=== PATIENT | female | born 1970 | race Caucasian/White ===

== ENCOUNTER 2016-12-18 20:11 | Emergency (ER) | payer BC ==
[2016-12-18] MEDS ORDERED: Ondansetron INJ* 2 MG/ML VIAL IV ONE (20:22)
[2016-12-18] MEDS ORDERED: Morphine INJ* 2 MG/ML 1 ML SYRINGE IV ONE (20:22)
[2016-12-18] MEDS ORDERED: NS 0.9% 1000 ML* 1,000 ML IV ONE (20:23)
--- NOTE | 2016-12-18 21:09 | UC ---
Complaint Female HPI - HPI Summary HPI Summary: PATIENT ARRIVES IN SEVERE PAIN AND DISTRESS. 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 SEVERE SWELLING, BLEEDING, AND AND PAIN TO AREA FOLLOWING INJURY - History Of Current Complaint Stated Complaint: PERSONAL Time Seen by Provider: 12/18/16 20:22 Hx Obtained From: Patient, Family/Concrete Boom Operator Onset/Duration: Sudden Onset, Lasting Minutes, Still Present Timing: Constant Severity Initially: Moderate Severity Currently: Severe Pain Intensity: 5 Pain Scale Used: 0-10 Numeric Character: Sharp, Dull Aggravating Factor(s): Movement, Urination Associated Signs And Symptoms: Positive: Vaginal Bleeding/Discharge, Genital Swelling. Negative: Fever, Back Pain - Risk Factors Ectopic Risk Factor: Negative - Allergies/Home Medications Allergies/Adverse Reactions: Allergies Allergy/AdvReac Type Severity Reaction Status Date / Time No Known Allergies Allergy Verified 04/23/16 12:15 PMH/Surg Hx/FS Hx/Imm Hx Previously Healthy: Yes - Family History Known Family History: Negative: Blood Disorder - Social History Occupation: Employed Full-time Lives: With Family Review of Systems Constitutional: Negative Skin: Other - SWELLING OF EXTERNAL GENITALIA R>L Eyes: Negative ENT: Negative Respiratory: Negative Cardiovascular: Negative Gastrointestinal: Negative Genitourinary: Negative Motor: Negative Neurovascular: Negative Musculoskeletal: Negative Neurological: Negative Psychological: Negative All Other Systems Reviewed And Are Negative: Yes Physical Exam Triage Information Reviewed: Yes Appearance: Well-Nourished, Pain Distress, Thin Vital Signs: Initial Vital Signs Resp 18 12/18/16 20:29 Vital Signs Reviewed: Yes Eye Exam: Normal ENT Exam: Normal Dental Exam: Normal Neck exam: Normal Neck: Positive: Supple, Nontender, No Lymphadenopathy Respiratory Exam: Normal Respiratory: Positive: Chest non-tender, Lungs clear, Normal breath sounds, No respiratory distress, No accessory muscle use Cardiovascular Exam: Normal Cardiovascular: Positive: RRR, No Murmur, Pulses Normal Abdominal Exam: Normal Abdomen Description: Positive: Nontender Musculoskeletal Exam: Normal Musculoskeletal: Positive: Strength Intact Neurological Exam: Normal Psychological Exam: Normal Psychological: Positive: Normal Response To Family Skin: Positive: Other - SWELLING POSSIBLE LACERATION OF EXTERNAL GENITALIA Complaint Female Dx - Differential Dx/Diagnosis Differential Diagnosis/HQI/PQRI: Other - INJURY TO PUBIC SYMPHYSIS, VAGINAL GENITAL TRAUMA. Provider Diagnoses: VAGINAL/GENITAL TRAUMA - Physician Notifications Discussed Patient Care With: Issac Ignacio Time Discussed With Above Provider: 20:10 Instructed by Provider To: MD Will See In ED Discharge - Discharge Plan Condition: Stable Disposition: TRANS HIGHER LVL OF CARE FAC Referrals: Brett Echavarria MD [Primary Care Provider] -
[2016-12-18 21:47] VITALS: BP 157/96
== END 2016-12-18 20:40 | disposition short-term general hospital (02) ==
LOC: UCEAST 20:11
DX: S39.848A Other specified injuries of external genitals, initial encounter (principal); W18.09XA Striking against other object with subsequent fall, initial encounter; Y93.9 Activity, unspecified; Y92.9 Unspecified place or not applicable; Y99.9 Unspecified external cause status
CPT/HCPCS: 96374; 96375; 96376; 99203; 99213; G0463; J2270; J2405

== ENCOUNTER 2016-12-18 20:59 | Observation (INO) | payer BC ==
[2016-12-18] MEDS ORDERED: Ondansetron INJ* 2 MG/ML VIAL IV ONE (21:28)
[2016-12-18] MEDS ORDERED: HYDROmorphone* 1 MG/ML 1 ML SYR IV SLOW PU ONE ×2 (21:28→22:41)
[2016-12-18 21:44] LABS: Hematocrit 35 % (35-47); Hemoglobin 11.5 g/dl (12.0-16.0); Mean Corpuscular HGB Conc 33 g/dl (31-36); Mean Corpuscular Hemoglobin 28 pg (27-31); Mean Corpuscular Volume 86 fL (80-97); Mean Platelet Volume 8 um3 (7.4-10.4); Red Blood Count 4.08 10^6/ul (4.0-5.4); Red Cell Distribution Width 13 % (10.5-15); White Blood Count 16.8 10^3/ul (3.5-10.8)
[2016-12-18 21:50] LABS: Comments Flag Yes
[2016-12-18 21:56] LABS: Add Diff/Slide Review? Slide Review Added
[2016-12-18 22:01] LABS: ALT 16 U/L (7-52); AST 15 U/L (13-39); Albumin 4.4 g/dL (3.2-5.2); Alkaline Phosphatase 60 U/L (34-104); Anion Gap 7 mmol/L (2-11); BUN/Creatinine Ratio 18.3 (8-20); Blood Urea Nitrogen 13 mg/dL (6-24); CO2 Carbon Dioxide 26 mmol/L (22-32); Calcium 9.6 mg/dL (8.6-10.3); Chloride 101 mmol/L (101-111); EGFR African American 114.5 (>60); Globulin 3.2 g/dL (2-4); Glucose 101 mg/dL (70-100); Potassium 4.5 mmol/L (3.5-5.0); Sodium 134 mmol/L (133-145); Total Protein 7.6 g/dL (6.4-8.9)
--- NOTE | 2016-12-18 22:10 | RAD ---
INDICATION: Fall. Pelvic injury. COMPARISON: None TECHNIQUE: Noncontrast axial source images were obtained from the iliac crests through the symphysis pubis. FINDINGS: There are no CT abnormalities of the bony pelvis. The uterus and adnexa appear normal on noncontrast imaging. There is a large right labial hematoma measuring approximately 7.3 x 4.1 cm. There is a small amount of edema in the subadjacent fat of the perineum. There are no additional soft tissue abnormalities. No free fluid or adenopathy is seen. The noncontrast CT appearance of the bowel is unremarkable. The superficial soft tissues appear normal. The bladder appears normal. IMPRESSION: RIGHT LABIAL HEMATOMA.
--- NOTE | 2016-12-18 22:40 | ED ---
GI/ HPI - HPI Summary HPI Summary: 46F PMH of depression and PTSD presents with right labia trauma s/p slipped on deck and a board hit her external genitalia. She is in severe pain and the area is bleeding. She denies any LOC, chest pain, abdominal pain, or lower extremity pain. She was transferred from urgent care due to bleeding and extreme pain. She has been placing ice on the area. She was able to ambulate into urgent care with extreme pain. She has not urinated yet. A almazan was attempted to be inserted and was unsuccessful at urgent care. - History of Current Complaint Chief Complaint: EDTraumaMultiple Time Seen by Provider: 12/18/16 21:20 Stated Complaint: INJURY TO GENITALIA - Allergy/Home Medications Allergies/Adverse Reactions: Allergies Allergy/AdvReac Type Severity Reaction Status Date / Time Bupropion [From Wellbutrin] Allergy Rash Verified 12/18/16 21:47 PMH/Surg Hx/FS Hx/Imm Hx Endocrine/Hematology History: Denies: Hx Anticoagulant Therapy Cardiovascular History: Denies: Hx Hypertension Psychiatric History: Reports: Hx Post Traumatic Stress Disorder - Cancer History Hx Chemotherapy: No Hx Radiation Therapy: No - Surgical History Surgery Procedure, Year, and Place: , TONSILLECTOMY, BUNIONECTOMY Infectious Disease History: Denies: Traveled Outside the [place] in Last 30 Days - Family History Known Family History: Positive: Cardiac Disease - Social History Alcohol Use: None Substance Use Type: Reports: None Smoking Status (MU): Never Smoked Tobacco Review of Systems Negative: Fever Negative: Chest Pain Negative: Shortness Of Breath Positive: Other - labia trama All Other Systems Reviewed And Are Negative: Yes Physical Exam Triage Information Reviewed: Yes Vital Signs On Initial Exam: Initial Vitals Resp 18 12/18/16 21:56 Vital Signs Reviewed: Yes Appearance: Positive: Pain Distress Skin: Positive: Warm, Dry Head/Face: Positive: Normal Head/Face Inspection Eyes: Positive: Normal, Conjunctiva Clear Respiratory/Lung Sounds: Positive: Clear to Auscultation, Breath Sounds Present Cardiovascular: Positive: Normal, RRR Abdomen Description: Positive: Nontender, Soft Bowel Sounds: Positive: Present Pelvic Exam: Positive: other - large edematous right labia with ecchmyosis present with two lacerations present on labia major one is 3cm other is 4cm that are not bleeding at this time and appear superficial, no blood visible on external exam of vagina, on bimanual exam small amount of blood present in vagina unable to see source and due to patient discomfort unable to insert speculum Diagnostics - Vital Signs Vital Signs Resp 12/18/16 21:56 18 - Laboratory Lab Results: Lab Results 12/18/16 12/18/16 12/18/16 Range/Units 20:28 20:28 20:28 WBC 16.8 H (3.5-10.8) 10^3/ul RBC 4.08 (4.0-5.4) 10^6/ul Hgb 11.5 L (12.0-16.0) g/dl Hct 35 (35-47) % MCV 86 (80-97) fL MCH 28 (27-31) pg MCHC 33 (31-36) g/dl RDW 13 (10.5-15) % Plt Count 390 (150-450) 10^3/ul MPV 8 (7.4-10.4) um3 Neut % (Auto) 65.2 (38-83) % Lymph % (Auto) 21.6 L (25-47) % [place] % (Auto) 10.8 H (1-9) % Eos % (Auto) 1.7 (0-6) % Baso % (Auto) 0.7 (0-2) % Absolute Neuts (auto) 11.0 H (1.5-7.7) 10^3/ul Absolute Lymphs (auto) 3.6 (1.0-4.8) 10^3/ul Absolute Monos (auto) 1.8 H (0-0.8) 10^3/ul Absolute Eos (auto) 0.3 (0-0.6) 10^3/ul Absolute Basos (auto) 0.1 (0-0.2) 10^3/ul Absolute Nucleated RBC 0.01 10^3/ul Nucleated RBC % 0 INR (Anticoag Therapy) 0.95 (0.89-1.11) Sodium 134 (133-145) mmol/L Potassium 4.5 (3.5-5.0) mmol/L Chloride 101 (101-111) mmol/L Carbon Dioxide 26 (22-32) mmol/L Anion Gap 7 (2-11) mmol/L BUN 13 (6-24) mg/dL Creatinine 0.71 (0.51-0.95) mg/dL Est GFR ( Amer) 114.5 (>60) Est GFR (Non-Af Amer) 89.0 (>60) BUN/Creatinine Ratio 18.3 (8-20) Glucose 101 H (70-100) mg/dL Calcium 9.6 (8.6-10.3) mg/dL Total Bilirubin 0.30 (0.2-1.0) mg/dL AST 15 (13-39) U/L ALT 16 (7-52) U/L Alkaline Phosphatase 60 (34-104) U/L Total Protein 7.6 (6.4-8.9) g/dL Albumin 4.4 (3.2-5.2) g/dL Globulin 3.2 (2-4) g/dL Albumin/Globulin Ratio 1.4 (1-3) Beta HCG, Quant < 0.60 mIU/mL Result Diagrams: 12/18/16 20:28 12/18/16 20:28 Lab Statement: Any lab studies that have been ordered have been reviewed, and results considered in the medical decision making process. - CT pelvis CT Interpretation: Positive (See Comments) - IMPRESSION: RIGHT LABIAL HEMATOMA CT Interpretation Completed By: Radiologist DEVIN Course/Dx - Course Course Of Treatment: 46F presents with labial trauma today s/p she slipped and a loose board hit her labia. She states the area immediately swelled up and started to bleed. She went to urgent care prior to coming here and was given morphine 4mg. she is in severe pain distress on initial exam. gave dilaudid and pain was better enough so that was able to perform external exam. noted two supericial laceration to large edematous right labia that are not bleeding at time. spoke with dr kim as patient has seen here before and said to have dr gerardo admit for pain control and have whomever is on in the morning suture her as hematoma is not getting bigger and there is just oozing from the lacerations at this point. dr rios agrees to admit for pain control. patient understands and agrees with plan. - Diagnoses Differential Diagnoses - Female: Other - vaginal trauma, hematoma, laceration Provider Diagnoses: right labial hematoma, Laceration of labia majora Discharge - Discharge Plan Condition: Stable Disposition: ADMITTED TO [facility]
[2016-12-18] MEDS ORDERED: Ketorolac INJ* 30 MG/ML 1 ML VIAL IV PUSH ONE (23:18)
[2016-12-19] MEDS ORDERED: Naloxone* 0.4 MG/ML 1 ML VIAL IV PUSH PRN (01:59)
[2016-12-19] MEDS ORDERED: Morphine PCA* 150 MG in PREMIX PCA SCH (02:00)
[2016-12-19] MEDS ORDERED: NS 0.9% 1000 ML* 1,000 ML IV SCH (02:00)
[2016-12-19 08:01] VITALS: BP 105/54
[2016-12-19] MEDS ORDERED: oxyCODONE/Acetamin 5/325 MG* TAB PO PRN (08:03)
[2016-12-19] MEDS ORDERED: Docusate CAP* 100 MG PO PRN (08:09)
[2016-12-19] MEDS ORDERED: LevoCETirizine TAB (NF) 5 MG TAB PO SCH (09:00)
[2016-12-19] MEDS ORDERED: Sertraline* 100 MG TAB PO SCH (09:30)
[2016-12-19 11:03] LABS: Urine Bacteria Absent (Absent); Urine Bilirubin Negative (Negative); Urine Glucose Negative (Negative); Urine Nitrite Negative (Negative)
== END 2016-12-19 15:00 | disposition home or self-care (01) ==
LOC: ED 20:59 → MED 23:40
PROVIDERS: ADMIT Hospitalist; ATTEND Obstetrics & Gynecology
DX: S30.23XA Contusion of vagina and vulva, initial encounter (principal); S31.41XA Laceration without foreign body of vagina and vulva, initial encounter; W01.10XA Fall on same level from slipping, tripping and stumbling with subsequent striking against unspecified object, initial encounter; Y92.9 Unspecified place or not applicable; Z79.899 Other long term (current) drug therapy; F43.10 Post-traumatic stress disorder, unspecified; G43.909 Migraine, unspecified, not intractable, without status migrainosus; G47.00 Insomnia, unspecified; Z32.02 Encounter for pregnancy test, result negative
CPT/HCPCS: 36415; 72192; 80053; 81003; 81015; 84702; 85025; 85610; 86850; 86900; 86901; 96361; 96374; 96375; 99284; A9270-GY; G0378; J1170; J1885; J2405

== ENCOUNTER 2016-12-23 13:14 | Emergency (ER) | payer BC ==
[2016-12-23 14:17] VITALS: BP 112/70
[2016-12-23] MEDS ORDERED: Phenazopyridine TAB* 100 MG PO ONE (14:22)
--- NOTE | 2016-12-23 14:41 | UC ---
Complaint Female HPI - HPI Summary HPI Summary: TRAUMATIC LABIAL HEMATOMA ON 12/18/16 SEEN HERE AND AT EMERGENCY DEPARTMENT. HAD BEEN CATHED IN ED, HOSPITALIZED OVER NIGHT, WAS ABLE TO FREELY URINATE AFTER HOSPITAL OBSERVATION. CURRENTLY HAVING URINARY FREQUENCY, URGENCY AND DISCOMFORT WITH URINATION. NO FEVER NO BACK PAIN. NO ABDOMINAL PAIN. - History Of Current Complaint Chief Complaint: UCGU Stated Complaint: UTI COMPLAINT Time Seen by Provider: 12/23/16 13:42 Hx Obtained From: Patient Hx Last Menstrual Period: 12/15/16 Onset/Duration: Gradual Onset, Lasting Days Timing: Intermittent, Lasting Days, Lasting Weeks Severity Initially: Mild Severity Currently: Moderate Pain Intensity: 4 Pain Scale Used: 0-10 Numeric Character: Dull Aggravating Factor(s): Movement, Urination Associated Signs And Symptoms: Negative: Fever, Back Pain, Nausea, Vomiting(# Of Episodes =) - Risk Factors Ectopic Risk Factor: Negative Ovarian Torsion Risk Factor: Negative - Allergies/Home Medications Allergies/Adverse Reactions: Allergies Allergy/AdvReac Type Severity Reaction Status Date / Time Bupropion [From Wellbutrin] Allergy Rash Verified 12/23/16 14:08 PMH/Surg Hx/FS Hx/Imm Hx Previously Healthy: Yes Other History Of: Negative For: Anticoagulant Therapy - Surgical History Surgical History: Yes Surgery Procedure, Year, and Place: , TONSILLECTOMY, BUNIONECTOMY - Family History Known Family History: Positive: Cardiac Disease Negative: Blood Disorder - Social History Occupation: Employed Full-time Lives: With Family Alcohol Use: None Substance Use Type: None Smoking Status (MU): Never Smoked Tobacco Review of Systems Constitutional: Negative Skin: Negative Eyes: Negative ENT: Negative Respiratory: Negative Cardiovascular: Negative Gastrointestinal: Negative Genitourinary: Dysuria, Frequency, Urgency Motor: Negative Neurovascular: Negative Musculoskeletal: Negative Neurological: Negative Psychological: Negative All Other Systems Reviewed And Are Negative: Yes Physical Exam Triage Information Reviewed: Yes Appearance: Well-Appearing, Well-Nourished, Pain Distress Vital Signs: Initial Vital Signs Temp 98.3 F 12/23/16 14:10 Pulse 67 12/23/16 14:10 Resp 16 12/23/16 14:10 Pulse Ox 96 12/23/16 14:10 Vital Signs Reviewed: Yes Eye Exam: Normal ENT Exam: Normal ENT: Positive: Normal ENT inspection, Hearing grossly normal, TMs normal Dental Exam: Normal Neck exam: Normal Neck: Positive: Supple, Nontender, No Lymphadenopathy Respiratory Exam: Normal Respiratory: Positive: Chest non-tender, Lungs clear, Normal breath sounds, No respiratory distress Cardiovascular Exam: Normal Cardiovascular: Positive: RRR, No Murmur, Pulses Normal Abdominal Exam: Normal Abdomen Description: Positive: Nontender, No Organomegaly, Soft. Negative: CVA Tenderness (R), CVA Tenderness (L) Musculoskeletal Exam: Normal Neurological Exam: Normal Psychological Exam: Normal Skin Exam: Normal Complaint Female Dx - Differential Dx/Diagnosis Differential Diagnosis/HQI/PQRI: Urinary Tract Infection Provider Diagnoses: LABIAL HEMATOMA; URINARY TRACT INFECTION Discharge - Discharge Plan Condition: Stable Disposition: HOME Prescriptions: Phenazopyridine TAB* [Pyridium 100 mg TAB*] 100 mg PO TID #15 tab Sulfamethox/Trimethoprim DS* [Bactrim DS 800/160 TAB*] 1 tab PO BID #10 tab Patient Education Materials: Urinary Tract Infection in Women (ED) Referrals: Judi Alicea MD [Medical Doctor] - If Needed Brett Echavarria MD [Primary Care Provider] -
== END 2016-12-23 14:27 | disposition home or self-care (01) ==
LOC: UCEAST 13:14
DX: S30.23XA Contusion of vagina and vulva, initial encounter (principal); Y84.6 Urinary catheterization as the cause of abnormal reaction of the patient, or of later complication, without mention of misadventure at the time of the procedure; Y92.238 Other place in hospital as the place of occurrence of the external cause; Y93.9 Activity, unspecified; Y99.9 Unspecified external cause status; N39.0 Urinary tract infection, site not specified
CPT/HCPCS: 81003; 87077; 87086; 87186; 99212; A9270-GY; G0463

== ENCOUNTER 2017-03-12 10:26 | Inpatient (IN) | payer BC ==
[2017-03-12 11:18] LABS: Urine Bilirubin Negative (Negative); Urine Glucose Negative (Negative); Urine Nitrite Negative (Negative)
[2017-03-12 11:18] LABS: Hematocrit 35 % (35-47); Hemoglobin 11.8 g/dl (12.0-16.0); Mean Corpuscular HGB Conc 33 g/dl (31-36); Mean Corpuscular Hemoglobin 29 pg (27-31); Mean Corpuscular Volume 86 fL (80-97); Mean Platelet Volume 7 um3 (7.4-10.4); Red Blood Count 4.11 10^6/ul (4.0-5.4); Red Cell Distribution Width 13 % (10.5-15); White Blood Count 8.2 10^3/ul (3.5-10.8)
[2017-03-12 11:32] LABS: Benzodiazepine Urine Screen None Detected (None Detect)
[2017-03-12 11:35] LABS: ALT 16 U/L (7-52); AST 17 U/L (13-39); Albumin 4.3 g/dL (3.2-5.2); Alkaline Phosphatase 52 U/L (34-104); Anion Gap 10 mmol/L (2-11); BUN/Creatinine Ratio 15.5 (8-20); Blood Urea Nitrogen 11 mg/dL (6-24); CO2 Carbon Dioxide 26 mmol/L (22-32); Calcium 9.6 mg/dL (8.6-10.3); Chloride 102 mmol/L (101-111); EGFR Non-African American 88.6 (>60); Glucose 96 mg/dL (70-100); Potassium 4.2 mmol/L (3.5-5.0); Sodium 138 mmol/L (133-145); Total Protein 7.3 g/dL (6.4-8.9)
[2017-03-12 11:56] LABS: Acetaminophen < 15 mcg/mL; Alcohol < 10 mg/dL (<10); Salicylate < 2.50 mg/dL (<30)
[2017-03-12 12:03] LABS: TSH (Thyroid Stimulating Horm) 4.16 mcIU/mL (0.34-5.60)
--- NOTE | 2017-03-12 14:53 | ED ---
Gerardo Lizarraga Nilda, scribed for Cain Chopra MD on 03/12/17 at 1108 . Psychiatric Complaint - HPI Summary HPI Summary: Pt is a 47 y/o F presenting to ED with depression and "feels like she's falling apart." Symptoms are aggravated by work and alleviated by nothing. She notes insomnia. Yesterday she had suicidal ideation without a plan. She denies self- harm and auditory hallucinations. Patient also denies chest pain, SOB, abdominal pain, calf pain, and LE pain. She is a non-smoker and does not drink alcohol or abuse drugs. She was previously hospitalized for post- depression. She has no change to appetite. - History Of Current Complaint Chief Complaint: EDMentalHealth Time Seen by Provider: 03/12/17 10:55 Hx Obtained From: Patient Hx Last Menstrual Period: 12/15/16 Onset/Duration: Gradual Onset, Still Present Timing: Constant Character: Depressed Aggravating Factor(s): Recent Stress - Work Alleviating Factor(s): Nothing Associated Signs And Symptoms: Positive: Sleep Disturbance - Insomnia Has Suicidal: Reports: Thoughts - Allergies/Home Medications Allergies/Adverse Reactions: Allergies Allergy/AdvReac Type Severity Reaction Status Date / Time Bupropion [From Wellbutrin] Allergy Rash Verified 12/23/16 14:08 PMH/Surg Hx/FS Hx/Imm Hx Endocrine/Hematology History: Denies: Hx Anticoagulant Therapy Cardiovascular History: Denies: Hx Hypertension Sensory History: Reports: Hx Contacts or Glasses Denies: Hx Hearing Aid Opthamlomology History: Reports: Hx Contacts or Glasses Psychiatric History: Reports: Hx Depression - Depression, Hx Post Traumatic Stress Disorder - Cancer History Hx Chemotherapy: No Hx Radiation Therapy: No - Surgical History Surgery Procedure, Year, and Place: , TONSILLECTOMY, BUNIONECTOMY Infectious Disease History: Denies: Traveled Outside the [place] in Last 30 Days - Family History Known Family History: Positive: Cardiac Disease Negative: Blood Disorder - Social History Alcohol Use: None Substance Use Type: Reports: None Smoking Status (MU): Never Smoked Tobacco Review of Systems Negative: Chest Pain Negative: Shortness Of Breath Negative: Abdominal Pain Negative: Myalgia Positive: Depressed - suicidal ideation yesterday, Other - Negative: self-harm and auditory hallucinations All Other Systems Reviewed And Are Negative: Yes Physical Exam - Summary Physical Exam Summary: The patient is well nourished, and exhibits distress. She is crying and upset. The skin is warm and dry and skin color reflects adequate perfusion. HEENT: The head is normocephalic and atraumatic. The pupils are equal and reactive. The conjunctivae are clear and without drainage. Nares are patent and without drainage. Mouth reveals moist mucous membranes and the throat is without erythema and exudate. Neck is supple with full range of motion and non-tender. Respiratory: Chest is non-tender. Lungs are clear to auscultation and breath sounds are symmetrical and equal. Cardiovascular: Hear is regular rate and rhythm. There is no murmur or rub auscultated. There is no peripheral edema and pulses are symmetrical and equal. Abdomen: The abdomen is soft and non-tender. There are normal bowel sounds heard in all four quadrants and there is no organomegaly palpated. Musculoskeletal: There is no back pain noted. Extremities are non-tender with full range of motion. There is good capillary refill. There is no peripheral edema or calf tenderness elicited. Neurological: Patient is alert and oriented to person, place and time. She is cooperative. The patient has symmetrical motor strength in all four extremities. Cranial nerves are grossly intact. Deep tendon reflexes are symmetrical and equal in all four extremities. Psychiatric: The patient is crying, upset, and depressed. Triage Information Reviewed: Yes Vital Signs On Initial Exam: Initial Vitals Temp Pulse Resp BP Pulse Ox 9836 F 80 16 121/87 89 03/12/17 10:30 03/12/17 10:30 03/12/17 10:30 03/12/17 10:30 03/12/17 10:30 Vital Signs Reviewed: Yes Diagnostics - Vital Signs Vital Signs Temp Pulse Resp BP Pulse Ox 03/12/17 10:30 9836 F 80 16 121/87 89 - Laboratory Lab Results: Lab Results 03/12/17 03/12/17 03/12/17 Range/Units 10:48 11:06 11:06 WBC 8.2 (3.5-10.8) 10^3/ul RBC 4.11 (4.0-5.4) 10^6/ul Hgb 11.8 L (12.0-16.0) g/dl Hct 35 (35-47) % MCV 86 (80-97) fL MCH 29 (27-31) pg MCHC 33 (31-36) g/dl RDW 13 (10.5-15) % Plt Count 373 (150-450) 10^3/ul MPV 7 L (7.4-10.4) um3 Neut % (Auto) 57.8 (38-83) % Lymph % (Auto) 28.8 (25-47) % [place] % (Auto) 9.6 H (1-9) % Eos % (Auto) 2.5 (0-6) % Baso % (Auto) 1.3 (0-2) % Absolute Neuts (auto) 4.8 (1.5-7.7) 10^3/ul Absolute Lymphs (auto) 2.4 (1.0-4.8) 10^3/ul Absolute Monos (auto) 0.8 (0-0.8) 10^3/ul Absolute Eos (auto) 0.2 (0-0.6) 10^3/ul Absolute Basos (auto) 0.1 (0-0.2) 10^3/ul Absolute Nucleated RBC 0 10^3/ul Nucleated RBC % 0 Sodium 138 (133-145) mmol/L Potassium 4.2 (3.5-5.0) mmol/L Chloride 102 (101-111) mmol/L Carbon Dioxide 26 (22-32) mmol/L Anion Gap 10 (2-11) mmol/L BUN 11 (6-24) mg/dL Creatinine 0.71 (0.51-0.95) mg/dL Est GFR ( Amer) 114.0 (>60) Est GFR (Non-Af Amer) 88.6 (>60) BUN/Creatinine Ratio 15.5 (8-20) Glucose 96 (70-100) mg/dL Calcium 9.6 (8.6-10.3) mg/dL Total Bilirubin 0.30 (0.2-1.0) mg/dL AST 17 (13-39) U/L ALT 16 (7-52) U/L Alkaline Phosphatase 52 (34-104) U/L Total Protein 7.3 (6.4-8.9) g/dL Albumin 4.3 (3.2-5.2) g/dL Globulin 3.0 (2-4) g/dL Albumin/Globulin Ratio 1.4 (1-3) TSH 4.16 (0.34-5.60) mcIU/mL Urine Color Straw Urine Appearance Clear Urine pH 6.0 (5-9) Ur Specific [place] 1.009 L (1.010-1.030) Urine Protein Negative (Negative) Urine Ketones Negative (Negative) Urine Blood Negative (Negative) Urine Nitrate Negative (Negative) Urine Bilirubin Negative (Negative) Urine Urobilinogen Negative (Negative) Ur Leukocyte Esterase Negative (Negative) Urine Glucose Negative (Negative) Urine Ascorbic Acid * H (Negative) Salicylates < 2.50 (<30) mg/dL Urine Opiates Screen (None Detect) Acetaminophen < 15 mcg/mL Ur Barbiturates Screen (None Detect) Ur Phencyclidine Scrn (None Detect) Ur Amphetamines Screen (None Detect) U Benzodiazepines Scrn (None Detect) Urine Cocaine Screen (None Detect) U Cannabinoids Screen (None Detect) Serum Alcohol < 10 (<10) mg/dL 03/12/17 Range/Units 11:06 WBC (3.5-10.8) 10^3/ul RBC (4.0-5.4) 10^6/ul Hgb (12.0-16.0) g/dl Hct (35-47) % MCV (80-97) fL MCH (27-31) pg MCHC (31-36) g/dl RDW (10.5-15) % Plt Count (150-450) 10^3/ul MPV (7.4-10.4) um3 Neut % (Auto) (38-83) % Lymph % (Auto) (25-47) % [place] % (Auto) (1-9) % Eos % (Auto) (0-6) % Baso % (Auto) (0-2) % Absolute Neuts (auto) (1.5-7.7) 10^3/ul Absolute Lymphs (auto) (1.0-4.8) 10^3/ul Absolute Monos (auto) (0-0.8) 10^3/ul Absolute Eos (auto) (0-0.6) 10^3/ul Absolute Basos (auto) (0-0.2) 10^3/ul Absolute Nucleated RBC 10^3/ul Nucleated RBC % Sodium (133-145) mmol/L Potassium (3.5-5.0) mmol/L Chloride (101-111) mmol/L Carbon Dioxide (22-32) mmol/L Anion Gap (2-11) mmol/L BUN (6-24) mg/dL Creatinine (0.51-0.95) mg/dL Est GFR ( Amer) (>60) Est GFR (Non-Af Amer) (>60) BUN/Creatinine Ratio (8-20) Glucose (70-100) mg/dL Calcium (8.6-10.3) mg/dL Total Bilirubin (0.2-1.0) mg/dL AST (13-39) U/L ALT (7-52) U/L Alkaline Phosphatase (34-104) U/L Total Protein (6.4-8.9) g/dL Albumin (3.2-5.2) g/dL Globulin (2-4) g/dL Albumin/Globulin Ratio (1-3) TSH (0.34-5.60) mcIU/mL Urine Color Urine Appearance Urine pH (5-9) Ur Specific [place] (1.010-1.030) Urine Protein (Negative) Urine Ketones (Negative) Urine Blood (Negative) Urine Nitrate (Negative) Urine Bilirubin (Negative) Urine Urobilinogen (Negative) Ur Leukocyte Esterase (Negative) Urine Glucose (Negative) Urine Ascorbic Acid (Negative) Salicylates (<30) mg/dL Urine Opiates Screen None detected (None Detect) Acetaminophen mcg/mL Ur Barbiturates Screen None detected (None Detect) Ur Phencyclidine Scrn None detected (None Detect) Ur Amphetamines Screen None detected (None Detect) U Benzodiazepines Scrn None detected (None Detect) Urine Cocaine Screen None detected (None Detect) U Cannabinoids Screen None detected (None Detect) Serum Alcohol (<10) mg/dL Result Diagrams: 03/12/17 11:06 03/12/17 11:06 Lab Statement: Any lab studies that have been ordered have been reviewed, and results considered in the medical decision making process. Course/Dx - Course Assessment/Plan: Pt is a 47 y/o F presenting to ED with depression and "feels like she's falling apart." Symptoms are aggravated by work. She notes insomnia. Yesterday she had suicidal ideation without a plan. She denies self-harm and auditory hallucinations. Patient also denies chest pain, SOB, abdominal pain, calf pain, and LE pain. She was previously hospitalized for post- depression. She has no change to appetite. Medically cleared for MHE at 1110. After MHE, patient has opted for a .31 voluntary admission. Pt will be admitted with diagnoses of depression and exacerbation of PTSD. She understands and agrees. Elevated blood pressure noted. Advised to follow up. - Differential Dx/Clinical Impression Differential Diagnosis/HQI/PQRI: Positive: Depression, Suicidal Ideation, Other - ptsd Provider Diagnosis: Depression, PTSD, exacerbation Discharge - Discharge Plan Condition: Stable Disposition: ADMITTED TO [facility] Referrals: Brett Echavarria MD [Primary Care Provider] - The documentation as recorded by the Gerardo guzman Nilda accurately reflects the service I personally performed and the decisions made by , Cain Chopra MD.
[2017-03-12] MEDS ORDERED: Nicotine GUM* 2 MG PO PRN (17:08)
[2017-03-12] MEDS ORDERED: Nicotine Inhaler* 10 MG AMP INH PRN (17:08)
[2017-03-12] MEDS ORDERED: clonazePAM TAB(*) 0.5 MG PO PRN (17:09)
[2017-03-12] MEDS ORDERED: Zolpidem TAB* 5 MG PO PRN (17:09)
[2017-03-12] MEDS ORDERED: Mouth Piece, Nicotine* 1 EACH CARTRIDGE INH SCH (19:20)
[2017-03-12] MEDS: Sertraline* 100 MG TAB PO SCH (21:19)
[2017-03-13] MEDS: Cetirizine* 10 MG TAB PO SCH (09:22)
[2017-03-13] MEDS: Sertraline* 100 MG TAB PO SCH (09:23)
--- NOTE | 2017-03-13 16:12 | PN ---
[facility]: Group Therapy Note - Service Type Service Type: [id number] Group Psychotherapy - Medication Education Group: Patient was attentive and participatory in CBT programming this morning, and remained in good behavioral control. Patient expressed positive insights regarding relevant treatment interventions and goals. - Group Participation Patient Participating in Group: Yes
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
[2017-03-14] MEDS ORDERED: Venlafaxine EXT RELEASE CAP* 75 MG PO SCH (09:00)
[2017-03-14 09:15] VITALS: BP 127/64
[2017-03-14] MEDS: Cetirizine* 10 MG TAB PO SCH (09:28)
--- NOTE | 2017-03-14 13:31 | DS ---
CC: Dr. Brett Echavarria; Chantell Ania, [facility]* DATE OF ADMISSION: 03/12/2017. DATE OF DISCHARGE: 03/14/2017. SUPERVISING PSYCHIATRIST: Dr. Adriano West* (dictated by AIRAM Pitts) . DISCHARGE DIAGNOSIS: AXIS I: Major depressive disorder, PTSD, bereavement. AXIS II: Deferred. AXIS III: No active medical problem. AXIS IV: Stressors related to recent of her mother, recent termination, and financial strain. AXIS V: 60. CONDITION AT THE TIME OF DISCHARGE: Improved. The patient reports much improved mood and readiness for discharge. She states that being on the Mental Health Unit for a day was helpful and that she was able to rest and recuperate. She is looking forward to returning to her outpatient providers. She has a standing appointment with her hypnotherapist today at 1:30. She also has an appointment with her therapist next week when the therapist returns from vacation. The patient has reached out to her previous psychiatrist, Dr. Maritza Agosto and obtained an appointment with her as well. The patient denies side effects of change in medications. She will continue to titrate medications with primary care provider and outpatient psychiatrist. I-STOP was checked and her report of controlled substance use is consistent with filled prescriptions; [facility] reference number [id number]. MENTAL STATUS EXAM: The patient is well-groomed and euthymic with a bright affect. She is talkative and reports eagerness to return home. She is alert and oriented times three. Concentration is good. Recall is 3/3. Her mood is "great." Affect is congruent. Speech is normal rate, rhythm, and volume with a Faroese accent. Her thought process is logical, goal-directed, and coherent. Content of thought is negative for SI, HI, . She denies preoccupations, phobias, rituals, and delusions. Her insight is good. Her judgment is good. Her fund of knowledge is excellent. DISCHARGE INSTRUCTIONS: Instructions given to the patient by nursing staff. She will resume outpatient medications with Dr. Echavarria. She will discontinue sertraline and continue Venlafaxine XR 150 mg. This was electronically prescribed to the [facility] on [facility]. Diet is regular. Activity is ambulation as tolerated. Tobacco cessation not applicable and there are no pending labs or diagnostic studies at the time of discharge. Follow-up care as stated above. The patient made these appointments herself and those include: her therapist, her hypnotherapist, her primary care provider, and psychiatrist. HOSPITAL COURSE: A. Reason for admission: The patient presented to the emergency department with reported increased depression and vague suicidal ideation. She was admitted on voluntary status to the Adult Behavioral Services Unit. B. Psychiatric treatment rendered: The patient was placed on 15 minute checks and encouraged to participate in intensive milieu, individual and group psychoeducation. She was interactive with staff and participated fully in groups. She agreed to suggested medication changes to better target depression and anxiety. She was safe on all checks and denied suicidal ideation. Her and son visited on the unit per her request and this went well. Discharge planning collaborated with and ensured that all were in agreement with discharge plan. The patient expressed readiness for discharge and exhibited forward thinking. She reported that she wanted to be able to leave today to meet with her hypnotherapist and has a parent-teacher conference tomorrow at her son's school. Discharge was decided upon by treatment team due to obligation to treat in the least restrictive setting and patients improved presentation. AIRAM PITTS [id number]/[facility] #: [id number] ZAIN
== END 2017-03-14 12:30 | disposition home or self-care (01) | DRG 754 ==
LOC: ED 10:26 → BSU 14:53
PROVIDERS: ADMIT Psychiatry & Neurology Psychiatry; ATTEND Psychiatry & Neurology Psychiatry
DX: F32.9 Major depressive disorder, single episode, unspecified (principal); R45.851 Suicidal ideations; F43.10 Post-traumatic stress disorder, unspecified; Z63.4 Disappearance and death of family member; Z79.899 Other long term (current) drug therapy; Z88.8 Allergy status to other drugs, medicaments and biological substances; Z81.8 Family history of other mental and behavioral disorders
CPT/HCPCS: 36415; 80053; 80307; 80320; 80329; 81003; 84443; 85025; 90853; 99222; 99238; A9270-GY; G0480